=== PATIENT | male | born 1960 | race African-American/Black ===

== ENCOUNTER 2020-07-31 10:55 | Outpatient (CLI) | payer MEDICARE, SELFPAY ==
--- NOTE | 2020-07-31 12:10 | ECG_ITS ---
Measurements Intervals [place] Rate: 66 P: 64 MN: 184 QRS: 251 QRSD: 146 T: 48 QT: 437 QTc: 461 Interpretive Statements SINUS RHYTHM RIGHT AXIS DEVIATION RIGHT BUNDLE BRANCH BLOCK ABNORMAL ECG Electronically Signed On 07-31-2020 12:21:25 CDT by Kashmir Erickson D.O.
[2020-07-31 20:07] LABS: Hemoglobin A1C 5.1 % (<5.7)
== END 2020-07-31 10:56 | disposition home or self-care (01) ==
LOC: ANHSURGERY 11:01
PROVIDERS: PCP Internal Medicine; Visit Provider Urology
DX: N52.9 Male erectile dysfunction, unspecified (principal); I10 Essential (primary) hypertension; Z01.818 Encounter for other preprocedural examination; I45.10 Unspecified right bundle-branch block
CPT/HCPCS: 36415; 83036; 87086; 93005